=== PATIENT | female | born 1955 | race Caucasian/White ===

== ENCOUNTER 2016-11-10 23:15 | Emergency (ER) | payer OTHER ==
[2016-11-10 23:19] VITALS: BP 124/74; PULSE 94; TEMP 99.7; BMI 29.7
--- NOTE | 2016-11-10 23:57 | PDOC ---
History of Present Illness - History of Present Illness Initial Comments: 11/11/16 00:46 Patient is a 61 year old female with significant medical hx of HTN, asthma, hypothyroidism and uterine CA s/p hysterectomy who is presenting to the ED with three days of cough, rhinorrhea and nasal congestion. The patient is also complaining of two days of nausea, vomiting, diarrhea. The patient reports her cough has been progressive and producing white sputum. She notes that her asthma has been acting up with some wheezing. The patient took robitussin and used her albuterol pump which relieved some of her symptoms. Two days ago the patient developed body aches, headache, nausea, vomiting, diarrhea, and subjective fever. PMD: Shaila Tristan MD <Cherie Diaz - Last Filed: 11/11/16 00:46> <Keven Hernandez - Last Filed: 11/11/16 01:56> - General Chief Complaint: Respiratory Stated Complaint: DIFF BREATHING/COUGH/FEVER Time Seen by Provider: 11/10/16 23:39 Past History <Cherie Diaz - Last Filed: 11/11/16 00:46> - Past Medical History Anemia: No Asthma: Yes Cancer: No Cardiac Disorders: No CVA: No COPD: No CHF: No Dementia: No Diabetes: No GI Disorders: Yes (ACID REFLUX) Disorders: No HTN: Yes Hypercholesterolemia: No Liver Disease: No Seizures: No Thyroid Disease: Yes (HYPO) - Psycho/Social/Smoking Cessation Hx Anxiety: Yes Suicidal Ideation: No Smoking Status: No Smoking History: Never smoked Have you smoked in the past 12 months: No Number of Cigarettes Smoked Daily: 0 Hx Alcohol Use: No Drug/Substance Use Hx: No Substance Use Type: Alcohol Hx Substance Use Treatment: No <Keven Hernandez - Last Filed: 11/11/16 01:56> - Past Medical History Allergies/Adverse Reactions: Allergies Allergy/AdvReac Type Severity Reaction Status Date / Time lisinopril Allergy Cough Verified 11/10/16 23:19 Home Medications: Ambulatory Orders Amlodipine Besylate [Norvasc -] 10 mg PO DAILY 05/16/12 Fluticasone Prop 0.05% Nasal [Flonase -] 1 - 2 spray NS HS 05/16/12 Levothyroxine [Synthroid -] 88 mcg PO DAILY 05/16/12 Albuterol Sulfate Inhaler - [Ventolin HFA Inhaler -] 1 - 2 inh PO Q4H PRN Losartan Potassium [Cozaar -] 50 mg PO DAILY 01/09/14 Cetirizine HCl [All Day Allergy] 10 mg PO DAILY PRN 11/11/16 Montelukast Na [Singulair -] 10 mg PO HS 11/11/16 Omeprazole 40 mg PO DAILY 11/11/16 Prednisone [Deltasone -] 40 mg PO DAILY #8 tablet 11/11/16 Tiotropium [place] [Spiriva] 18 mcg IH DAILY 11/11/16 Review of Systems - Review of Systems Comments:: 11/11/16 00:47 CONSTITUTIONAL: Reported: Subjective Fever No reported: Chills, Diaphoresis, Generalized Weakness, Malaise, Loss of Appetite HEENT: Reported: Rhinorrhea, Nasal Congestion No reported: Throat Pain, Throat Swelling, Difficulty Swallowing, Mouth Swelling , Ear Pain, Eye Pain, Visual Changes CARDIOVASCULAR: No reported: Chest Pain, Syncope, Palpitations, Irregular Heart Rate, Lightheadedness, Peripheral Edema RESPIRATORY: Reported: Cough, Wheezing No reported: Shortness of Breath, SOB with Exertion, Orthopnea, Stridor, Hemoptysis GASTROINTESTINAL: Reported: Nausea, Vomiting, Diarrhea No reported: Abdominal pain, Abdominal Distension, Constipation, Melena, Hematochezia GENITOURINARY: No reported: Dysuria, Frequency, Urgency, Hesitancy, Flank Pain, Genital Pain MUSCULOSKELETAL: Reported: Myalgia No reported: Arthralgia, Joint Swelling, Back pain, Neck Pain SKIN: No reported: Rash, Itching, Pallor HEMEATOLOGIC/IMMUNOLOGIC: No reported: Easy Bleeding, Easy Bruising, Lymphadenopathy, Frequent infections ENDOCRINE: No reported: Unexplained Weight Gain, Unexplained Weight Loss, Heat Intolerance , Cold Intolerance NEUROLOGIC: Reported: Headache No reported: Focal Weakness, Paresthesias, Vertigo, Lightheadedness, Unsteady Gait, Seizure, Mental Status Changes, Incontinence PSYCHIATRIC: No reported: Anxiety, Depression <Cherie Diaz - Last Filed: 11/11/16 00:46> *Physical Exam - Vital Signs Last Vital Signs Temp Pulse Resp BP Pulse Ox 99.7 F H 94 H 18 124/74 98 11/10/16 23:17 11/10/16 23:17 11/10/16 23:17 11/10/16 23:17 11/10/16 23:17 - Physical Exam Comments: 11/11/16 00:47 GENERAL: The patient is awake, alert, and fully oriented, Nontoxic - in no acute distress. HEAD: Normocephalic, atraumatic. EYES: extraocular movements intact, sclera anicteric, conjunctiva clear. ENT: +nasal congestion, normal voice NECK: Normal range of motion, supple LUNGS: Scattered wheezing. No rhonchi, no rales. HEART: Regular rate and rhythm, without murmur, rub or gallop. ABDOMEN: Soft, nontender, normoactive bowel sounds. No guarding, no rebound.No CVA tenderness EXTREMITIES: Normal range of motion, no edema. No clubbing or cyanosis. No cords , erythema, or tenderness. NEUROLOGICAL: No facial assymetry, Normal speech, PSYCH: Normal mood, normal affect. SKIN: Warm, Dry, normal turgor <Cherie Diaz - Last Filed: 11/11/16 00:46> - Vital Signs Last Vital Signs Temp Pulse Resp BP Pulse Ox 99.7 F H 94 H 18 124/74 98 11/10/16 23:17 11/10/16 23:17 11/10/16 23:17 11/10/16 23:17 11/10/16 23:17 <Keven Hernandez - Last Filed: 11/11/16 01:56> ED Treatment Course - Medications Given in the ED: ED Medications Discontinued Medications Generic Name Dose Route Start Last Admin Trade Name Deepa PRN Reason Stop Dose Admin Acetaminophen 650 mg 11/11/16 00:00 11/11/16 00:22 Tylenol - PO 11/11/16 00:01 650 mg ONCE ONE Administration Albuterol/Ipratropium 1 amp 11/11/16 00:00 11/11/16 00:22 Duoneb - NEB 11/11/16 00:01 1 amp ONCE ONE Administration <Cherie Diaz - Last Filed: 11/11/16 00:46> Medical Decision Making - Medical Decision Making 11/11/16 00:11 61y F hx of htn, asthma, hl, presents with nasal congestion, cough, headache, body aches since , +sick contacts as grandchild with similar symptoms. on exam the pts exam noted for mild scattered wheezing, otherwise she appears well. suspect common cold vs flu will treat supportively will give abluterol here will ck cxr tylenol for headache. 11/11/16 01:55 The patient's chest x-ray is negative for any acute disease The patient is feeling better on reassessment. I suspect her symptoms are secondary to bronchospasm from a URI/cold Will manage supportively at home we'll give the patient some steroids, we'll have her continue her Robitussin Return precautions were discussed I discussed the physical exam findings, ancillary test results and final diagnoses with the patient. I answered all of the patient's questions. The patient was satisfied with the care received and felt comfortable with the discharge plan and treatment plan. The patient will call their primary care physician within 24 hours to arrange follow-up and will return to the Emergency Department with any new, persistent or worsening symptoms. A portion of this note was documented by scribe services under my direction. I have reviewed the details of the note, within reason, and agree with the documentation with the following case summary and management plan written by me <Keven Hernandez - Last Filed: 11/11/16 01:56> *DC/Admit/Observation/Transfer - Attestations Scribe Attestion: 11/11/16 00:47 Documentation prepared by Cherie Diaz, acting as senior medical technologist for Keven Hernandez MD. <Cherie Diaz - Last Filed: 11/11/16 00:46> - Discharge Dispostion Admit: No <Keven Hernandez - Last Filed: 11/11/16 01:56> Diagnosis at time of Disposition: Asthma exacerbation URI (upper respiratory infection) Qualifiers: URI type: acute nasopharyngitis (common cold) Qualified Code(s): J00 - Acute nasopharyngitis [common cold] - Discharge Dispostion Disposition: HOME Condition at time of disposition: Improved - Referrals Referrals: Shaila Ibarra MD [Primary Care Provider] - - Patient Instructions Printed Discharge Instructions: DI for Common Cold, DI for Asthma -- Adult Additional Instructions: Return to the emergency department immediately with ANY new, persistent or worsening symptoms. Take Tylenol or Motrin for fever or body aches. Continue taking your Robitussin for your cough. Use your albuterol as needed for your coughing/wheezing. You MUST call and follow up with your doctor on saturday or saturday for further evaluation of your symptoms. Results were discussed with you. Please make sure your doctor reviews the results of your emergency evaluation. If you had any xrays during your visit, it was read preliminarily by myself, a Radiologist will review it and if there are any additional findings we will call you. Print Language: SWAZI
[2016-11-11] MEDS ORDERED: ALBUTEROL SO4 2.5/IPRATROPIUM 0.5 INH SOL 3 ML VIAL.NEB. NEB ONE
[2016-11-11] MEDS ORDERED: ACETAMINOPHEN 325 MG TABLET (FP) PO ONE
[2016-11-11] MEDS ORDERED: ACETAMINOPHEN 325 MG TABLET (FP) ONE (00:11)
== END 2016-11-11 02:12 | disposition home or self-care (01) ==
LOC: JER 23:15
PROC: 3E0F7GC Introduction of Other Therapeutic Substance into Respiratory Tract, Via Natural or Artificial Opening (ICD-10-PCS; principal; 2016-11-10)
DX: J45.901 Unspecified asthma with (acute) exacerbation (principal); J00 Acute nasopharyngitis [common cold]; K21.9 Gastro-esophageal reflux disease without esophagitis; E03.9 Hypothyroidism, unspecified; I10 Essential (primary) hypertension
CPT/HCPCS: 71010-TC; 99281-25

== ENCOUNTER 2018-07-22 02:43 | Emergency (ER) | payer MEDICARE, OTHER ==
[2018-07-22 04:21] VITALS: BP 161/85; PULSE 68; TEMP 97.9; BMI 27.1
--- NOTE | 2018-07-22 04:43 | PDOC ---
History of Present Illness - General Chief Complaint: Blood Pressure Problem Stated Complaint: HIGH BP Time Seen by Provider: 07/22/18 04:07 - History of Present Illness Initial Comments: 07/22/18 04:58 The patient is a 63 year old female with a history of HTN, Asthma, GERD who presents for evaluation of an elevated BP. The patient notes that she awoke this evening not feeling herself and checked her blood pressure noting it to be elevated to 159 systolic prompting her presentation to the ED for further evaluation. She notes that her symptoms have improved on presentation to the ED. She otherwise denies fevers, chills, SOB, chest pain, nausea, vomiting, abdominal pain, numbness, tingling, weakness, or changes with urination or bowel movements. Past History - Past Medical History Allergies/Adverse Reactions: Allergies Allergy/AdvReac Type Severity Reaction Status Date / Time lisinopril Allergy Cough Verified 07/22/18 04:21 Home Medications: Ambulatory Orders Amlodipine Besylate [Norvasc -] 10 mg PO DAILY 05/16/12 Fluticasone Prop 0.05% Nasal [Flonase -] 1 - 2 spray NS HS 05/16/12 Levothyroxine [Synthroid -] 88 mcg PO DAILY 05/16/12 Albuterol Sulfate Inhaler - [Ventolin HFA Inhaler -] 1 - 2 inh PO Q4H PRN Losartan Potassium [Cozaar -] 50 mg PO DAILY 01/09/14 Cetirizine HCl [All Day Allergy] 10 mg PO DAILY PRN 11/11/16 Montelukast Na [Singulair -] 10 mg PO HS 11/11/16 Omeprazole 40 mg PO DAILY 11/11/16 Tiotropium [place] [Spiriva] 18 mcg IH DAILY 11/11/16 predniSONE [Deltasone -] 40 mg PO DAILY #8 tablet 11/11/16 Anemia: No Asthma: Yes Cancer: No Cardiac Disorders: No CVA: No COPD: No CHF: No Dementia: No Diabetes: No GI Disorders: Yes (ACID REFLUX) Disorders: No HTN: Yes Hypercholesterolemia: No Liver Disease: No Seizures: No Thyroid Disease: Yes (HYPO) - Suicide/Smoking/Psychosocial Hx Smoking Status: No Smoking History: Never smoked Have you smoked in the past 12 months: No Number of Cigarettes Smoked Daily: 0 Information on smoking cessation initiated: No Hx Alcohol Use: No Drug/Substance Use Hx: No Substance Use Type: Alcohol Hx Substance Use Treatment: No Review of Systems - Review of Systems Comments:: 07/22/18 05:01 Constitutional: No fevers, chills, fatigue, malaise HEENT: No Rhinorrhea, nasal congestion, visual changes Cardiovascular: No chest pain, syncope, palpitations, lightheadedness Respiratory: No Cough, SOB, Hemoptysis, Gastrointestinal: No Abdominal pain, Nausea, Vomiting, Constipation, Diarrhea, Melena Genitourinary: No Dysuria, Frequency, Urgency, Hesitancy, Hematuria, Flank pain Musculoskeletal: No Myalgia, arthralgia Skin: No rashes, itching, bruising, pallor Neurologic: No Headache, Dizziness, Numbness, Weakness, or Tingling Psychiatric: No Hallucinations. No SI or HI *Physical Exam - Vital Signs Last Vital Signs Temp Pulse Resp BP Pulse Ox 97.9 F 68 19 161/85 99 07/22/18 02:43 07/22/18 02:43 07/22/18 02:43 07/22/18 02:43 07/22/18 02:43 - Physical Exam Comments: 07/22/18 05:01 General Appearance: Nourished. No Apparent Distress HEENT: EOMI, CONCETTA. No Pharyngeal Erythema, Tonsillar Exudate, Tonsillar Erythema Neck: No Cervical Lymphadenopathy Respiratory/Chest: Lungs Clear, Normal Breath Sounds. No Crackles, Rales, Rhonchi, Wheezing Cardiovascular: Regular Rhythm, Regular Rate. No Murmur, Gallops, Rubs Gastrointestinal/Abdominal: Normal Bowel Sounds, Soft. No Guarding, Rebound, Tenderness Musculoskeletal: No CVA Tenderness Extremity: Normal Capillary Refill Integumentary: Normal Color, Dry, Warm Neurologic: back feeder plywood layup line II-XII NML intact, Fully Oriented, Alert, Normal Mood/Affect, Normal Response, Motor Strength 5/5. Moderate Sedation - Procedure Monitoring Vital Signs: Procedure Monitoring Vital Signs Temperature 97.9 F 07/22/18 02:43 Pulse Rate 68 07/22/18 02:43 Respiratory Rate 19 07/22/18 02:43 Blood Pressure 161/85 07/22/18 02:43 O2 Sat by Pulse Oximetry (%) 99 07/22/18 02:43 ED Treatment Course - LABORATORY CBC & Chemistry Diagram: 07/22/18 05:01 07/22/18 05:01 Medical Decision Making - Medical Decision Making 07/22/18 05:01 The patient is a 63 year old female with a history of HTN, Asthma, GERD who presents for evaluation of an elevated BP. The patient is asymptomatic on exam here and appears clinically well. Given her history and physical exam, we will obtain a cbc, cmp, troponin, ekg, chest plain film to evaluate further. We will continue to monitor and reassess while here in the ED. 07/22/18 06:27 CBC, cmp, troponin are unremarkable. Chest plain film is unremarkable as preliminarily read by ED physician. The patient continues to remain asymptomatic here in the ED and appears clinically well. We are comfortable discharging the patient home with primary care provider follow up. We discussed the results, plan, and return precautions with the patient who voiced understanding and is agreeable with the plan. *DC/Admit/Observation/Transfer Diagnosis at time of Disposition: Hypertension Qualifiers: Hypertension type: unspecified Qualified Code(s): I10 - Essential (primary) hypertension - Discharge Dispostion Disposition: HOME Condition at time of disposition: Stable Decision to Admit order: No - Referrals Referrals: Shaila Ibarra MD [Primary Care Provider] - - Patient Instructions Printed Discharge Instructions: DI for High Blood Pressure Additional Instructions: Please return to the ER if you experience concerning or worsening symptoms including worsening difficulty breathing, weakness, or chest pain. Your lab results were normal here in the ER. Please call to schedule a follow up appointment with your primary care provider within 2-3 days to discuss your ER visit and further management of your symptoms. - Post Discharge Activity
[2018-07-22 05:19] LABS: BASO % 0.4 % (0-2.0); EOS % 0.6 % (0-4.5); HEMATOCRIT 43.7 % (32.4-45.2); HEMOGLOBIN 14.3 GM/dL (10.7-15.3); LYMPH % 20.9 % (8-40); MCH 29.9 pg (25.7-33.7); MCHC 32.7 g/dl (32.0-36.0); MEAN CELL VOLUME 91.3 fl (80-96); MEAN PLT VOLUME 8.7 fl (7.5-11.1); MONO % 4.5 % (3.8-10.2); NEUT % 73.6 % (42.8-82.8); PLATELET COUNT 259 K/MM3 (134-434); RBC 4.78 M/mm3 (3.60-5.2); RDW 14.6 % (11.6-15.6); WHITE BLOOD COUNT 8.7 K/mm3 (4.0-10.0)
--- NOTE | 2018-07-22 05:55 | PDOC ---
Attending Attestation - Resident Resident Name: Glenroy Senior - ED Attending Attestation I have performed the following: I have examined & evaluated the patient, The case was reviewed & discussed with the resident, I agree w/resident's findings & plan, Exceptions are as noted - HPI HPI: 07/22/18 05:53 63 F with h/o HTN, asthma, presenting to ED with elevated BP. Pt states that she fell asleep on the couch watching TV last night. When she awoke, she felt very cold and anxious. She states her heart was racing, causing her to check her BP, which was 159/90. This concerned her, prompting her to come to the ER. Pt denies ever having CP/SOB. Denies VILLALOBOS. States that her heart has stopped racing. She denies any complaints currently. Pt takes amlodipine for her BP and has been compliant. States that her BP is typically labile. - Physicial Exam PE: 07/22/18 05:55 "GENERAL: Awake, alert, and fully oriented, in no acute distress. HEAD: No signs of trauma EYES: PERRLA, EOMI, sclera anicteric, conjunctiva clear ENT: Auricles normal inspection, hearing grossly normal, nares patent, oropharynx clear without exudates. Moist mucosa NECK: Nontender, no stepoffs, Normal ROM, supple, no lymphadenopathy, JVD, or masses LUNGS: Breath sounds equal, clear to auscultation bilaterally. No wheezes, and no crackles HEART: Regular rate and rhythm, normal S1 and S2, no murmurs, rubs or gallops ABDOMEN: Soft, nontender, normoactive bowel sounds. No guarding, no rebound. No masses EXTREMITIES: Normal range of motion, no edema. No clubbing or cyanosis. No cords, erythema, or tenderness NEUROLOGICAL: Cranial nerves II through XII intact. 5/5 strength and sensation in all extremities, Normal speech, normal gait, normal cerebellar function SKIN: Warm, Dry, normal turgor, no rashes or lesions noted. - Medical Decision Making 07/22/18 05:55 63 F with elevated BP and palpitations. Pt asymptomatic now. BP is mildly elevated at 160s systolic. EKG with no ischemic changes since prior EKG. - Labs, trop 07/22/18 06:24 Labs wnl Pt is well appearing, with normal vitals. Clinically stable for DC at this time. I discussed the physical exam findings, ancillary test results and final diagnoses with the patient. I answered all of the patient's questions. The patient was satisfied with the care received and felt comfortable with the discharge plan and treatment plan. The patient agrees to follow up with the primary care physician within 24-72 hours.
[2018-07-22 05:57] LABS: ALBUMIN 3.6 g/dl (3.4-5.0); ALK PHOS 89 U/L (45-117); ANION GAP 5 MMOL/L (8-16); BILIRUBIN,TOTAL 0.4 mg/dL (0.2-1); BLOOD UREA NITROGEN 22 mg/dL (7-18); CALCIUM 8.8 mg/dL (8.5-10.1); CHLORIDE 104 mmol/L (98-107); CO2 30 mmol/L (21-32); CREATININE 0.8 mg/dL (0.55-1.3); GLUCOSE,RANDOM 116 mg/dL (74-106); POTASSIUM 4.4 mmol/L (3.5-5.1); SGOT/AST 15 U/L (15-37); SGPT/ALT 24 U/L (13-61); SODIUM 140 mmol/L (136-145); TOT PROT 7.4 g/dl (6.4-8.2)
[2018-07-22 06:48] LABS: URINE APPEARANCE CLEAR; URINE BILIRUBIN NEGATIVE (<2.0 mg/dL); URINE COLOR COLORLESS; URINE GLUCOSE (UA) NEGATIVE (NEGATIVE); URINE KETONE NEGATIVE (NEGATIVE); URINE LEUK ESTERASE TRACE (NEGATIVE); URINE NITRITE NEGATIVE (NEGATIVE); URINE PROTEIN NEGATIVE (NEGATIVE); URINE UROBILINOGEN NEGATIVE mg/dL (0.2-1.0)
--- NOTE | 2018-07-22 16:25 | EKG ---
Test Reason : Blood Pressure : / mmHG Vent. Rate : 059 BPM Atrial Rate : 059 BPM P-R Int : 128 ms QRS Dur : 120 ms QT Int : 464 ms P-R-T Axes : 059 -01 151 degrees QTc Int : 459 ms SINUS BRADYCARDIA POSSIBLE ANTERIOR INFARCT , AGE UNDETERMINED T WAVE ABNORMALITY, CONSIDER LATERAL ISCHEMIA ABNORMAL ECG Confirmed by MD BHARATI, SINGH ([id number]) on 07/22/2018 4:25:08 PM Referred By: Confirmed By:SINGH CALABRESE MD
== END 2018-07-22 07:07 | disposition home or self-care (01) ==
LOC: JER 02:43
DX: I10 Essential (primary) hypertension (principal); J45.909 Unspecified asthma, uncomplicated; K21.9 Gastro-esophageal reflux disease without esophagitis
CPT/HCPCS: 36415; 71045-TC-FY; 80053; 81003; 81015; 82550; 84484; 85025; 93005; 93010; 99281-25

== ENCOUNTER 2019-04-19 04:44 | Emergency (ER) | payer OTHER, MEDICARE | END 2019-04-19 11:46 | disposition home or self-care (01) | LOC: JER 04:44 ==

== ENCOUNTER 2023-04-16 04:59 | Day surgery (SDC) | payer OTHER ==
[2023-04-15 11:40] VITALS: BMI 28.2
[2023-04-16 11:12] VITALS: TEMP 96.4
[2023-04-16 11:48] VITALS: BP 132/62; PULSE 60; RESP 20
== END 2023-04-16 11:51 | disposition home or self-care (01) ==
LOC: JASU-ENDO 04:59
PROVIDERS: ATTEND Internal Medicine Gastroenterology
PROC: 0DBP8ZX Excision of Rectum, Via Natural or Artificial Opening Endoscopic, Diagnostic (ICD-10-PCS; principal; 2023-04-16 10:30)
DX: Z12.11 Encounter for screening for malignant neoplasm of colon (principal); K62.1 Rectal polyp; K64.8 Other hemorrhoids; Z86.010 Personal history of colon polyps; I10 Essential (primary) hypertension
CPT/HCPCS: 88305-TC

== ENCOUNTER 2023-05-07 04:22 | Day surgery (SDC) | payer OTHER ==
[2023-05-01 11:49] VITALS: BMI 31.4
[2023-05-07 08:22] VITALS: TEMP 97.6
[2023-05-07 09:19] VITALS: BP 136/90; PULSE 51; RESP 18
== END 2023-05-07 09:46 | disposition home or self-care (01) ==
LOC: JASU-ENDO 04:22
PROVIDERS: ATTEND Internal Medicine Gastroenterology
PROC: 0DB78ZX Excision of Stomach, Pylorus, Via Natural or Artificial Opening Endoscopic, Diagnostic (ICD-10-PCS; 2023-05-07)
PROC: 0DB68ZX Excision of Stomach, Via Natural or Artificial Opening Endoscopic, Diagnostic (ICD-10-PCS; principal; 2023-05-07 08:00)
DX: K29.50 Unspecified chronic gastritis without bleeding (principal)
CPT/HCPCS: 88305-TC; 88342-TC

== ENCOUNTER 2024-04-20 11:08 | Emergency (ER) | payer OTHER ==
[2024-04-20 11:31] VITALS: BP 160/86; PULSE 61; RESP 20; TEMP 98.3; BMI 28.2
[2024-04-20] MEDS ORDERED: KETOROLAC TROMETHAMINE 15 MG/ML VIAL ONE (12:18)
[2024-04-20] MEDS: KETOROLAC TROMETHAMINE 15 MG/ML VIAL IVPUSH ONE (12:28)
[2024-04-20 12:44] LABS: BASO % 0.6 % (0-2.0); HEMOGLOBIN 14.7 GM/dL (10.7-15.3); LYMPH % 27.6 % (8-40); MCH 30.7 pg (25.7-33.7); MCHC 33.5 g/dl (32.0-36.0); MEAN CELL VOLUME 91.7 fl (80-96); MEAN PLT VOLUME 8.3 fl (7.5-11.1); MONO % 6.2 % (3.8-10.2); NEUT % 64.6 % (42.8-82.8); PLATELET COUNT 320 10^3/uL (134-434); RDW 14.7 % (11.6-15.6)
[2024-04-20 12:44] LABS: EPI CELLS 30 /uL (0-25.1); HYALINE CASTS 1 /uL (0-3.1); URINE APPEARANCE CLEAR; URINE BACTERIA 1810 /uL (0-1359); URINE BILIRUBIN NEGATIVE (NEGATIVE); URINE COLOR YELLOW; URINE GLUCOSE (UA) NEGATIVE (NEGATIVE); URINE KETONE NEGATIVE (NEGATIVE); URINE LEUK ESTERASE 2+ (NEGATIVE); URINE NITRITE NEGATIVE (NEGATIVE); URINE PROTEIN NEGATIVE (NEGATIVE); URINE RBC 7 /uL (0-23.9); URINE UROBILINOGEN 0.2 mg/dL (0.2-1.0); URINE WBC 218 /uL (0-25.8)
[2024-04-20 12:51] LABS: INR 0.92 (0.83-1.09); PROTHROMBIN TIME (PATIENT) 10.6 SEC (9.7-13.0)
[2024-04-20 12:54] LABS: ACTIVATED PTT 31.6 SECONDS (25.2-36.5)
[2024-04-20 12:56] LABS: POTASSIUM 4.3 mmol/L (3.5-5.1)
[2024-04-20 13:02] LABS: CALCIUM 9.2 mg/dL (8.5-10.1)
[2024-04-20 13:03] LABS: ALBUMIN 3.6 g/dl (3.4-5.0); BLOOD UREA NITROGEN 19.8 mg/dL (7-18)
[2024-04-20 13:06] LABS: CREATININE 0.8 mg/dL (0.55-1.3)
[2024-04-20 13:07] LABS: BILIRUBIN,TOTAL 0.3 mg/dL (0.2-1)
[2024-04-20 13:08] LABS: TOT PROT 7.6 g/dl (6.4-8.2)
[2024-04-20] MEDS: CEFTRIAXONE 1 GM in DEXTROSE 5%-WATER - 100 ML IVPB ONE (13:13)
[2024-04-20] MEDS ORDERED: CEFTRIAXONE 1 GM/50 ML BAG ONE (13:13)
== END 2024-04-20 14:12 | disposition home or self-care (01) ==
LOC: JER 11:08
PROC: 3E03329 Introduction of Other Anti-infective into Peripheral Vein, Percutaneous Approach (ICD-10-PCS; principal; 2024-04-20)
PROC: 3E0333Z Introduction of Anti-inflammatory into Peripheral Vein, Percutaneous Approach (ICD-10-PCS; 2024-04-20)
DX: N39.0 Urinary tract infection, site not specified (principal); M54.50 Low back pain, unspecified; R30.0 Dysuria; R35.0 Frequency of micturition
CPT/HCPCS: 36415; 74176-TC; 80053; 81003; 83690; 85025; 85610; 85730; 87086; 96365; 96375; 99284-25

== ENCOUNTER 2024-09-18 12:59 | Emergency (ER) | payer OTHER ==
[2024-09-18 13:06] VITALS: BMI 28.2
[2024-09-18] MEDS ORDERED: ALBUTEROL SO4 2.5/IPRATROPIUM 0.5 INH SOL 3 ML VIAL.NEB. NEB ONE ×2 (13:56→14:27)
[2024-09-18] MEDS ORDERED: methylPREDNISolone NA SUCC 125 MG/2 ML VIAL ONE (13:57)
[2024-09-18] MEDS: ALBUTEROL SO4 2.5/IPRATROPIUM 0.5 INH SOL 3 ML VIAL.NEB. NEB SCH (14:03)
[2024-09-18] MEDS: methylPREDNISolone NA SUCC 125 MG/2 ML VIAL IVPB ONE (14:04)
[2024-09-18 14:09] LABS: BASO % 0.5 % (0-2.0); EOS % 0.2 % (0-4.5); HEMATOCRIT 44.2 % (32.4-45.2); HEMOGLOBIN 14.4 GM/dL (10.7-15.3); LYMPH % 33.6 % (8-40); MCH 29.5 pg (25.7-33.7); MCHC 32.6 g/dl (32.0-36.0); MEAN CELL VOLUME 90.7 fl (80-96); MEAN PLT VOLUME 8.3 fl (7.5-11.1); MONO % 15.1 % (3.8-10.2); NEUT % 50.6 % (42.8-82.8); PLATELET COUNT 248 10^3/uL (134-434); RBC 4.87 M/mm3 (3.60-5.2); RDW 14.9 % (11.6-15.6); WHITE BLOOD COUNT 5.9 K/mm3 (4.0-10.0)
[2024-09-18 14:15] LABS: INR 1.06 (0.83-1.09); PROTHROMBIN TIME (PATIENT) 11.5 SEC (9.7-13.0)
[2024-09-18 14:18] LABS: ACTIVATED PTT 31.2 SECONDS (25.2-36.5)
[2024-09-18 14:23] LABS: POTASSIUM 4.5 mmol/L (3.5-5.1)
[2024-09-18 14:25] LABS: CALCIUM 9.2 mg/dL (8.5-10.1)
[2024-09-18 14:26] LABS: ALBUMIN 3.6 g/dl (3.4-5.0); BLOOD UREA NITROGEN 18.9 mg/dL (7-18)
[2024-09-18 14:29] LABS: CREATININE 0.9 mg/dL (0.55-1.3)
[2024-09-18 14:31] LABS: BILIRUBIN,TOTAL 0.3 mg/dL (0.2-1); TOT PROT 7.5 g/dl (6.4-8.2)
[2024-09-18 16:02] VITALS: BP 149/94; PULSE 96; RESP 18; TEMP 98.8
== END 2024-09-18 16:02 | disposition home or self-care (01) ==
LOC: JER 12:59
PROC: 3E033GC Introduction of Other Therapeutic Substance into Peripheral Vein, Percutaneous Approach (ICD-10-PCS; principal; 2024-09-18)
PROC: 3E0F7GC Introduction of Other Therapeutic Substance into Respiratory Tract, Via Natural or Artificial Opening (ICD-10-PCS; 2024-09-18)
DX: J45.909 Unspecified asthma, uncomplicated (principal); R06.02 Shortness of breath; R05.9 Cough, unspecified; R53.81 Other malaise; Z20.822 Contact with and (suspected) exposure to COVID-19
CPT/HCPCS: 0241U-QW; 36415; 71045-TC-FY; 80053; 83735; 85025; 85610; 85730; 93005; 93010; 94640; 96374; 99285-25

== ENCOUNTER 2024-09-21 13:46 | Observation (INO) | payer OTHER ==
[2024-09-21] MEDS ORDERED: ALBUTEROL SO4 2.5/IPRATROPIUM 0.5 INH SOL 3 ML VIAL.NEB. NEB ONE ×3 (14:19→21:35)
[2024-09-21] MEDS: ALBUTEROL SO4 2.5/IPRATROPIUM 0.5 INH SOL 3 ML VIAL.NEB. NEB ONE ×3 (14:25→21:45)
[2024-09-21] MEDS: SODIUM CHLORIDE 0.9% 500 ML INFUS.BAG IV ONE (14:35)
[2024-09-21 14:53] LABS: BASO % 0.2 % (0-2.0); HEMATOCRIT 43.6 % (32.4-45.2); HEMOGLOBIN 14.2 GM/dL (10.7-15.3); LYMPH % 33.8 % (8-40); MCH 29.3 pg (25.7-33.7); MCHC 32.6 g/dl (32.0-36.0); MEAN PLT VOLUME 8.5 fl (7.5-11.1); MONO % 7.4 % (3.8-10.2); NEUT % 58.6 % (42.8-82.8); PLATELET COUNT 297 10^3/uL (134-434); RBC 4.84 M/mm3 (3.60-5.2); RDW 14.4 % (11.6-15.6); WHITE BLOOD COUNT 11.6 K/mm3 (4.0-10.0)
[2024-09-21] MEDS ORDERED: ONDANSETRON 4 MG/2 ML VIAL ONE (15:01)
[2024-09-21 15:02] LABS: POTASSIUM 4.2 mmol/L (3.5-5.1)
[2024-09-21 15:03] LABS: CALCIUM 9.1 mg/dL (8.5-10.1)
[2024-09-21 15:04] LABS: ALBUMIN 3.5 g/dl (3.4-5.0); BLOOD UREA NITROGEN 28.3 mg/dL (7-18)
[2024-09-21] MEDS: ONDANSETRON 4 MG/2 ML VIAL IVPB ONE (15:04)
[2024-09-21 15:07] LABS: CREATININE 0.7 mg/dL (0.55-1.3)
[2024-09-21 15:09] LABS: BILIRUBIN,TOTAL 0.4 mg/dL (0.2-1); TOT PROT 7.7 g/dl (6.4-8.2)
[2024-09-21 15:12] LABS: N-TERMINAL BNP 117.4 pg/ml (5-125)
[2024-09-21] MEDS ORDERED: ALBUTEROL SO4 HFA INHALER IH PRN (21:08)
[2024-09-21] MEDS: methylPREDNISolone NA SUCC 40 MG/1 ML VIAL IVPUSH ONE ×3 (22:18→22:47)
[2024-09-21 23:13] VITALS: BMI 28.3
[2024-09-22] MEDS: methylPREDNISolone NA SUCC 40 MG/1 ML VIAL IVPUSH SCH (02:20)
[2024-09-22] MEDS: ALBUTEROL SO4 2.5/IPRATROPIUM 0.5 INH SOL 3 ML VIAL.NEB. NEB SCH (05:36)
[2024-09-22] MEDS ORDERED: methylPREDNISolone NA SUCC 40 MG/1 ML VIAL IVPUSH SCH (06:00)
[2024-09-22] MEDS: LEVOTHYROXINE NA 75 MCG TABLET (FP) PO SCH (06:21)
[2024-09-22] MEDS ORDERED: ALBUTEROL SO4 2.5/IPRATROPIUM 0.5 INH SOL 3 ML VIAL.NEB. NEB SCH (08:00)
[2024-09-22 09:04] LABS: HEMATOCRIT 41.5 % (32.4-45.2); HEMOGLOBIN 14.2 GM/dL (10.7-15.3); MCH 30.2 pg (25.7-33.7); MCHC 34.1 g/dl (32.0-36.0); MEAN CELL VOLUME 88.6 fl (80-96); MEAN PLT VOLUME 8.4 fl (7.5-11.1); PLATELET COUNT 261 10^3/uL (134-434); RBC 4.69 M/mm3 (3.60-5.2); RDW 14.7 % (11.6-15.6)
[2024-09-22 09:19] LABS: POTASSIUM 4.5 mmol/L (3.5-5.1)
[2024-09-22 09:21] LABS: CALCIUM 9.2 mg/dL (8.5-10.1)
[2024-09-22 09:22] LABS: ALBUMIN 3.4 g/dl (3.4-5.0); MAGNESIUM 1.9 mg/dL (1.8-2.4)
[2024-09-22 09:25] LABS: BLOOD UREA NITROGEN 22.3 mg/dL (7-18); CREATININE 0.9 mg/dL (0.55-1.3)
[2024-09-22 09:27] LABS: BILIRUBIN,TOTAL 0.3 mg/dL (0.2-1); TOT PROT 7.4 g/dl (6.4-8.2)
[2024-09-22] MEDS ORDERED: MAGNESIUM PO SCH (10:00)
[2024-09-22] MEDS ORDERED: CALCIUM PO SCH (10:00)
[2024-09-22] MEDS ORDERED: VITAMIN D3 PO SCH (10:00)
[2024-09-22] MEDS ORDERED: [UNRECOGNIZED DRUG - OTHER] PO SCH (10:00)
[2024-09-22] MEDS: amLODIPine BESYLATE 10 MG TABLET (FP) PO SCH (10:08)
[2024-09-22] MEDS: ENOXAPARIN NA (PORCINE) 40 MG/0.4 ML DISP.SYRIN SQ SCH (10:21)
[2024-09-22] MEDS: LOSARTAN POTASSIUM 25 MG TABLET PO SCH (11:22)
[2024-09-22] MEDS: BUDESONIDE/FORMETEROL FUMARATE 160/4.5 mcg INHALER IH SCH (11:23)
[2024-09-22] MEDS ORDERED: MAG HYDROX/AL HYDROX/SIMETH 30 ML UNIT-DOSE CUP PO PRN (19:21)
[2024-09-22] MEDS: FAMOTIDINE 20 MG TABLET PO SCH (21:43)
[2024-09-22] MEDS: ATORVASTATIN CA 10 MG TABLET (FP) PO SCH (21:43)
[2024-09-23 02:16] VITALS: RESP 18
[2024-09-23 10:17] VITALS: BP 123/84; PULSE 91; TEMP 98.8
== END 2024-09-23 12:58 | disposition home or self-care (01) ==
LOC: JER 13:46 → JERBED 17:51 → J7W 23:35
PROVIDERS: ADMIT Internal Medicine
PROC: 3E0F7GC Introduction of Other Therapeutic Substance into Respiratory Tract, Via Natural or Artificial Opening (ICD-10-PCS; principal; 2024-09-21)
PROC: 3E023GC Introduction of Other Therapeutic Substance into Muscle, Percutaneous Approach (ICD-10-PCS; 2024-09-21)
PROC: 3E033GC Introduction of Other Therapeutic Substance into Peripheral Vein, Percutaneous Approach (ICD-10-PCS; 2024-09-21)
PROC: 3E0337Z Introduction of Electrolytic and Water Balance Substance into Peripheral Vein, Percutaneous Approach (ICD-10-PCS; 2024-09-21)
DX: J45.901 Unspecified asthma with (acute) exacerbation (principal); I11.0 Hypertensive heart disease with heart failure; E78.5 Hyperlipidemia, unspecified; I44.7 Left bundle-branch block, unspecified; J44.9 Chronic obstructive pulmonary disease, unspecified; G89.29 Other chronic pain; Z99.81 Dependence on supplemental oxygen; E03.9 Hypothyroidism, unspecified; F17.200 Nicotine dependence, unspecified, uncomplicated; Z88.8 Allergy status to other drugs, medicaments and biological substances
CPT/HCPCS: 0241U-QW; 36415; 71045-TC-FY; 80053; 80061; 83036; 83735; 83880; 84439; 84443; 84484; 85025; 85027; 93005; 93010; 94640; 94761; 96372; 96374; 96375; 96376; 99285-25; G0378